=== PATIENT | male | born 1950 | race Caucasian/White ===

== ENCOUNTER 2016-10-11 07:32 | Outpatient (CLI) | payer MEDICARE, MEDICAID ==
[2016-10-11 13:11] LABS: BASOPHILS # (AUTO) 0.1 10^3/uL (0.0-0.1); BASOPHILS % (AUTO) 0.7 %; EOSINOPHILS # (AUTO) 0.2 10^3/uL (0.0-0.7); EOSINOPHILS % (AUTO) 2.7 %; HCT - HEMATOCRIT 30.5 % (42.0-52.0); HGB - HEMOGLOBIN 10.6 g/dL (14.0-18.0); IMMATURE RETIC FRACTION 0.54; LYMPHOCYTES # (AUTO) 1.4 10^3/uL (1.5-3.5); LYMPHOCYTES % (AUTO) 20.6 %; MEAN CORPUSCULAR HEMOGLOBIN 27.3 pg (27.0-31.0); MEAN CORPUSCULAR HGB CONC 34.8 g/dL (32.0-36.0); MEAN CORPUSCULAR VOLUME 78.5 fL (80.0-94.0); MEAN PLATELET VOLUME 8.7 fL (7.4-11.4); MONOCYTES # (AUTO) 0.6 10^3/uL (0.0-1.0); MONOCYTES % (AUTO) 8.6 %; NEUTROPHILS # (AUTO) 4.6 10^3/uL (1.5-6.6); NEUTROPHILS % (AUTO) 67.4 %; NUCLEATED RED BLOOD CELLS AUTO 0.2 /100WBC; RED BLOOD COUNT 3.89 10^6/uL (4.70-6.10); RED CELL DISTRIBUTION WIDTH 16.8 % (12.0-15.0); UNCORRECTED WHITE BLOOD COUNT 6.8 x10^3/uL; WHITE BLOOD COUNT 6.8 x10^3/uL (4.8-10.8)
[2016-10-11 13:35] LABS: ALBUMIN/GLOBULIN RATIO 1.3 (1.0-2.2); BILIRUBIN,TOTAL 0.9 mg/dL (0.2-1.0); BUN - BLOOD UREA NITROGEN 13 mg/dL (6-20); CALCIUM 9.3 mg/dL (8.5-10.3); CARBON DIOXIDE - CO2 25 mmol/L (21-32); CHLORIDE 96 mmol/L (101-111); CHOL/HDL RATIO 6.1 (<5.0); CHOLESTEROL 227 mg/dL; CREATININE 0.6 mg/dL (0.6-1.2); GFR - MDRD 134 (>89); GLUCOSE 118 mg/dL (70-100); HDL CHOLESTEROL 37 mg/dL; IRON 91 ug/dL (45-182); LDL/HDL RATIO 4.3 (<3.6); POTASSIUM 3.8 mmol/L (3.5-5.0); SODIUM 131 mmol/L (135-145); TOTAL IRON BINDING CAPACITY 389 ug/dL (250-450); TOTAL PROTEIN 7.5 g/dL (6.7-8.2); TRANSFERRIN 278 mg/dL (180-329); TRIGLYCERIDES 153 mg/dL; VLDL CHOLESTEROL 31 mg/dL
[2016-10-11 13:44] LABS: THYROID STIMULATING HORMONE 0.71 uIU/mL (0.34-5.60)
[2016-10-11 14:49] LABS: PLATELET ESTIMATE, MANUAL NORMAL (130-450,000) (NORMAL); PLATELET MORPHOLOGY 1+ GIANT PLATELETS (NORMAL)
[2016-10-11 14:50] LABS: WBC MORPHOLOGY (MULTIPLE) NORMAL APPEARANCE (NORMAL)
[2016-10-12 14:59] LABS: HEMOGLOBIN A1C 0.45 g/dL
[2016-10-12 15:21] LABS: FOLATE 12.07 ng/mL (5.90 - >24.8)
== END 2016-10-11 07:33 | disposition home or self-care (01) ==
LOC: LAB.N 07:32
PROVIDERS: ATTEND Physician Assistant
DX: D51.9 Vitamin B12 deficiency anemia, unspecified (principal)
CPT/HCPCS: 36415; 80053; 80061; 82607; 82728; 82746; 83036; 83540; 84443; 84466; 85025; 85044

== ENCOUNTER 2016-11-23 12:04 | Outpatient (CLI) | payer MEDICARE, MEDICAID ==
--- NOTE | 2016-11-23 16:07 | XRAY Report ---
CHEST TWO VIEWS: 11/23/2016 CLINICAL HISTORY: Chronic constipation, cough, smoker. COMPARISON: None. FINDINGS: The heart size is normal. The lungs are grossly clear. There is no pleural fluid or pneumo thorax. Degenerative change in the spine. IMPRESSION: NEGATIVE FOR ACUTE OR SIGNIFICANT FINDINGS. JOB #: [id number] EXT JOB #:[id number]
== END 2016-11-23 12:05 | disposition home or self-care (01) ==
LOC: DI 12:04
PROVIDERS: ATTEND Internal Medicine Hematology & Oncology
DX: R05 Cough (principal); F17.200 Nicotine dependence, unspecified, uncomplicated
CPT/HCPCS: 71020

== ENCOUNTER 2016-11-25 14:30 | Outpatient (CLI) | payer MEDICARE, MEDICAID ==
[2016-11-25 19:21] LABS: ALBUMIN/GLOBULIN RATIO 1.2 (1.0-2.2); BILIRUBIN,TOTAL 0.5 mg/dL (0.2-1.0); CREATININE 0.6 mg/dL (0.6-1.2); POTASSIUM 3.7 mmol/L (3.5-5.0); TOTAL PROTEIN 6.6 g/dL (6.7-8.2)
== END 2016-11-25 14:31 | disposition home or self-care (01) ==
LOC: LAB.N 14:30
PROVIDERS: ATTEND Family Medicine
DX: R89.9 Unspecified abnormal finding in specimens from other organs, systems and tissues (principal); R79.89 Other specified abnormal findings of blood chemistry; R35.1 Nocturia
CPT/HCPCS: 36415; 80053; 82728; 84153

== ENCOUNTER 2016-11-25 14:55 | Outpatient (CLI) | payer MEDICARE, MEDICAID ==
--- NOTE | 2016-11-28 09:21 | XRAY Report ---
BILATERAL HIPS AND PELVIS: 11/25/2016 CLINICAL INDICATION: Pain. FINDINGS: Frontal view of the hips and pelvis and frogleg lateral views of the bilateral hips demons trate moderate bilateral hip osteoarthritis. There are fractures of the right superior and inferior pubic rami, with callus formation, likely representing subacute insufficiency fractures. No definite sacral fracture is appreciated. No radiopaque foreign body is seen in the soft tissues. IMPRESSION: MODERATE BILATERAL OSTEOARTHRITIS. LIKELY SUBACUTE INSUFFICIENCY FRACTURES OF THE RIGHT SUPERIOR AND INFERIOR PUBIC RAMI. JOB #: [id number] EXT JOB #:[id number]
[2016-11-28 16:41] LABS: PSA FREE > 160.000 ng/mL (0.16-2.81)
== END 2016-11-25 14:56 | disposition home or self-care (01) ==
LOC: DI.N 14:55
PROVIDERS: ATTEND Family Medicine
DX: M84.454A Pathological fracture, pelvis, initial encounter for fracture (principal); M16.0 Bilateral primary osteoarthritis of hip
CPT/HCPCS: 36415; 73521; 80053; 82728; 84153; 84154

== ENCOUNTER 2016-12-17 14:26 | Emergency (ER) | payer MEDICARE, MEDICAID ==
--- NOTE | 2016-12-17 15:08 | ED Physician Documentation ---
History of Present Illness - Stated complaint Stated Complaint: MEDICATION REACTION - Chief complaint Chief Complaint: General - History obtained from History obtained from: Patient, Family - History of Present Illness Timing: Last night - Additonal information Additional information: 66-year-old male with a history of prostate cancer has metastases to the bone and pain in his pelvis and hips. He has seen his primary care doctor and will see a urologist in 5 days. He has been having pain in his hips and pelvis and he has been prescribed some Tylenol with codeine for this. The patient has previously taken Vicodin and has tolerated this. He took the Tylenol with codeine last night and immediately developed a pounding in his heart. He had this for several hours last night he feels well today. He feels that this was an obvious reaction to the medication and he would like us to fill his prescription for some Vicodin instead. He does not feel that workup of this is required or necessary. Review of Systems Constitutional: denies: Fever Eyes: denies: Decreased vision Ears: denies: Ear pain Nose: denies: Congestion Throat: denies: Sore throat Cardiac: reports: Palpitations. denies: Chest pain / pressure Respiratory: reports: Cough (chronic). denies: Dyspnea GI: denies: Nausea, Vomiting : denies: Dysuria, Frequency PD PAST MEDICAL HISTORY - Past Medical History Cardiovascular: Hypertension Respiratory: Asthma, Shortness of breath Neuro: None Endocrine/Autoimmune: None GI: None : Frequency HEENT: None Psych: None Musculoskeletal: None Derm: Herpes zoster, Eczema - Past Surgical History Past Surgical History: Yes General: Other - Present Medications Home Medications: Ambulatory Orders Medication Instructions Recorded Confirmed Albuterol Sulf [Ventolin Hfa 1 - 2 puffs INH Q4HR PRN 11/21/16 12/17/16 Inhaler] Ipratropium/Albuterol [Combivent 1 puffs INH Q6H 11/21/16 12/17/16 Respimat] Metoprolol Tartrate 25 mg PO BID 11/21/16 12/17/16 Nifedipine [Nifedipine ER] 30 mg PO DAILY 11/21/16 12/17/16 HYDROcod/ACETAM 5/325 [[place] 5/325] 1 - 2 ea PO Q6H PRN #15 tablet 12/17/16 - Allergies Allergies/Adverse Reactions: Allergies Allergy/AdvReac Type Severity Reaction Status Date / Time Penicillins Allergy Unknown Unknown Verified 12/17/16 14:37 chlorehexidine Allergy Rash Uncoded 12/17/16 14:38 - Social History Does the pt smoke?: No Smoking Status: Former smoker Does the pt drink ETOH?: No Does the pt have substance abuse?: No - Immunizations Immunizations are current?: Yes - POLST Patient has POLST: No PD ED PE NORMAL - Vitals Vital signs reviewed: Yes (hypertensive ) - General General: No acute distress, Well developed/nourished - HEENT HEENT: Atraumatic, PERRL, EOMI - Neck Neck: Supple, no meningeal sign - Cardiac Cardiac: RRR, No murmur - Respiratory Respiratory: No respiratory distress, Other (diminished breath sounds bilaterally ) - Abdomen Abdomen: Soft - Back Back: No CVA TTP, No spinal TTP - Derm Derm: Normal color, Warm and dry, No rash - Extremities Extremities: No deformity, No edema - Neuro Neuro: Alert and oriented X 3, breaker unit assembler 2-12 intact, No motor deficit, No sensory deficit, Normal speech - Psych Psych: Normal mood, Normal affect Results - Vitals Vitals: Vital Signs - 24 hr 12/17/16 12/17/16 14:30 16:12 Temperature 36.6 C Heart Rate 82 82 Respiratory 16 21 Rate Blood Pressure 150/68 H 128/63 O2 Saturation 100 98 Oxygen O2 Source Room air - EKG (time done) 1452 Rate: Rate (enter#) (80) Rhythm: NSR Compare to prior EKG: Changed from prior EKG (rate has decreased) Computer interpretation: Agree with computer PD MEDICAL DECISION MAKING - ED course Complexity details: reviewed old records, reviewed results, re-evaluated patient , considered differential, d/w patient, d/w family ED course: 66-year-old male with a history of prostate cancer with bone metastases has developed some tachycardia last night or feeling of rapid heart rate after taking Tylenol with codeine. He is refusing workup today and he has a normal- appearing resting electrocardiogram and no symptoms related to his heart. He denies any chest pain. Denies any shortness of breath. I have shared with patient my concerns of alternative diagnoses being uncovered by workup and he does not think this is necessary. I do not have any specific finding on physical examination for monitoring here today to be able to argue with the patient about the need to do these specific test. I am concerned that if I did do these tests I would be doing them unnecessarily and I discussed this with the patient and I will provide him with a prescription for the pain medication as requested and he will follow-up with his urologist as planned. Departure - Departure Disposition: Home, Self Care Clinical Impression: Medication side effect Qualifiers: Encounter type: initial encounter Qualified Code(s): T88.7XXA - Unspecified adverse effect of drug or medicament, initial encounter Condition: Stable Instructions: ED Drug React Adverse Other Follow-Up: Yahir Adhikari MD [Primary Care Provider] - Prescriptions: HYDROcod/ACETAM 5/325 [[place]me[place] 5/325] 1 - 2 ea PO Q6H PRN #15 tablet PRN Reason: Pain
[2016-12-17 16:12] VITALS: BP 128/63
== END 2016-12-17 16:30 | disposition home or self-care (01) ==
LOC: ED 14:26
DX: R00.0 Tachycardia, unspecified (principal); T40.2X5A Adverse effect of other opioids, initial encounter; C79.51 Secondary malignant neoplasm of bone; Z85.46 Personal history of malignant neoplasm of prostate; I10 Essential (primary) hypertension; J45.909 Unspecified asthma, uncomplicated; Z87.891 Personal history of nicotine dependence
CPT/HCPCS: 93005; 99283; 99284

== ENCOUNTER 2016-12-24 11:43 | Outpatient (CLI) | payer MEDICARE, MEDICAID ==
[2016-12-24] MEDS ORDERED: IOPAMIDOL-300 100 ML VIAL ONE (11:58)
[2016-12-24] MEDS ORDERED: IOPAMIDOL-300 50 ML VIAL ONE (11:58)
[2016-12-24] MEDS ORDERED: IOPAMIDOL-300 50 ML VIAL PO ONE (13:58)
[2016-12-24] MEDS ORDERED: IOPAMIDOL-300 100 ML VIAL IVP ONE (13:58)
--- NOTE | 2016-12-25 08:16 | CT Report ---
EXAM: CT CHEST, ABDOMEN AND PELVIS EXAM DATE: 12/24/2016 02:49 PM. CLINICAL HISTORY: Prostate cancer. COMPARISONS: None. TECHNIQUE: Routine helical CT imaging was performed through the chest, abdomen, and pelvis. IV contra st: 100 cc Isovue-300. Enteric contrast: Yes. Reconstructions: Coronal and sagittal. In accordance with CT protocol optimization, one or more of the following dose reduction techniques w ere utilized for this exam: automated exposure control, adjustment of mA and/or KV based on patient s ize, or use of iterative reconstructive technique. FINDINGS: Lungs/Pleura: No consolidation. Mild diffuse bilateral ill-defined groundglass opacities likely refle ct a low-grade inflammatory process. Trace bilateral pleural effusions with associated atelectasis. S lightly suboptimal evaluation of the lung bases secondary to motion artifact. No suspicious pulmonary nodule demonstrated. The airways are within normal limits for age. No pneumothorax. Mediastinum: The heart size is normal. Trace pericardial effusion. Coronary artery disease. No adenop athy or mass. Minimal thoracic aortic atherosclerosis without aneurysm. Somewhat suboptimal evaluatio n secondary to poor contrast opacification. Liver: Normal. Gallbladder/Bile Ducts: Cholelithiasis. No CT evidence of cholecystitis. Spleen: Normal. Pancreas: Normal. Adrenal Glands: Normal. Kidneys: Well-circumscribed hypodense foci are too small to characterize but likely represent simple cysts. No perinephric stranding or hydronephrosis. Peritoneal Cavity/Bowel: No bowel obstruction. Moderate stool in the proximal colon. Normal appendix. No ascites or pneumoperitoneum. No lymphadenopathy. Pelvic Organs: The prostate gland is enlarged and contains coarse central calcifications. The urinary bladder is within normal limits. Vasculature: Moderate atherosclerosis without aneurysm or other significant abnormality. Bones: Extensive, heterogeneous sclerotic lesions throughout spine, ribs, sternum, scapulae, clavicle s, pelvis, and imaged proximal femurs and proximal humeri. No acute fracture. Other: [id number] left inguinal hernia without evidence of incarceration or strangulation . IMPRESSION: 1. Extensive osseous metastases involving the entirety of the axial and imaged appendicular skeleton. No evidence of soft tissue metastases in the chest, abdomen, or pelvis. 2. Bowel-containing left inguinal hernia without evidence of obstruction. 3. Cholelithiasis without cholecystitis. 4. Chronic and incidental findings as above. [facility] Referring Provider Line: [phone] SITE ID: [id number]
== END 2016-12-24 11:44 | disposition home or self-care (01) ==
LOC: DI 11:43
PROVIDERS: ATTEND Urology
DX: C61 Malignant neoplasm of prostate (principal); C79.51 Secondary malignant neoplasm of bone; K40.90 Unilateral inguinal hernia, without obstruction or gangrene, not specified as recurrent; K80.20 Calculus of gallbladder without cholecystitis without obstruction
CPT/HCPCS: 71260; 74177; Q9967

== ENCOUNTER 2016-12-27 10:48 | Outpatient (CLI) | payer MEDICARE, MEDICAID ==
--- NOTE | 2016-12-27 16:56 | Nuclear Medicine Report ---
EXAM: BONE SCAN EXAM DATE: 12/27/2016 01:37 PM. CLINICAL HISTORY: PROSTATE CANCER. COMPARISON: CT 12/24/2016. TECHNIQUE: Following the intravenous administration of 32.6 mCi of technetium 99m MDP and an appropri ate delay, a whole-body scan was performed in anterior and posterior projections. FINDINGS: Exam Quality: Normal overall osseous radiotracer uptake. No renal activity identified. Skull: A few small foci of increased uptake are noted in skull. Thorax: Diffuse increased uptake in the ribs and sternum. Pelvis: Diffuse increased uptake in the pelvic bones. Spine: Diffuse increased uptake in the spine. Extremities: Several focal areas of increased uptake in the femurs and humeri. IMPRESSION: Diffuse skeletal metastatic disease in the axial and proximal appendicular skeleton. [facility] Referring Provider Line: [phone] SITE ID: [id number]
== END 2016-12-27 10:49 | disposition home or self-care (01) ==
LOC: DI 10:48
PROVIDERS: ATTEND Urology
DX: C79.51 Secondary malignant neoplasm of bone (principal)
CPT/HCPCS: 78306; A9503

== ENCOUNTER 2017-09-14 09:56 | Emergency (ER) | payer MEDICARE, MEDICAID ==
--- NOTE | 2017-09-14 10:32 | ED Physician Documentation ---
PD HPI UPPER EXT INJURY - Stated complaint Stated Complaint: GLF - Chief complaint Chief Complaint: Ext Problem - History obtained from History obtained from: Patient, Family - History of Present Illness Location: Right, Wrist Type of injury: Fall Where injury occurred: Home Timing - onset: Last night Timing - duration: Hours Timing - details: Abrupt onset, Still present Improved by: Rest, Ice, Immobilization Worsened by: Moving, Palpating Associated symptoms: Swelling. No: Weakness, Numbness, Tingling Contributing factors: No: Anticoagulated Similar symptoms before: Has not had sx before Recently seen: Clinic - Additonal information Additional information: 67-year-old male with advanced prostate cancer was outside feeding the [facility] last night when he fell backwards and as he fell he put his hand out behind him and landed on his right hand. He has pain in his right wrist and some swelling associated with that. He was able to be comfortable enough to sleep last night. He is been recently into see his oncologist and he is on dexamethasone daily and feels for the most part well. He is not having any other specific bone pain now. Review of Systems Constitutional: denies: Fever Eyes: denies: Decreased vision Ears: denies: Ear pain Nose: denies: Congestion Throat: denies: Sore throat Cardiac: denies: Chest pain / pressure, Palpitations Respiratory: denies: Dyspnea, Cough GI: denies: Abdominal Pain, Nausea, Vomiting : denies: Dysuria, Frequency Musculoskeletal: reports: Extremity pain, Joint pain, Joint swelling Neurologic: denies: Generalized weakness, Focal weakness, Numbness PD PAST MEDICAL HISTORY - Past Medical History Cardiovascular: Hypertension Respiratory: Asthma, Shortness of breath Endocrine/Autoimmune: None GI: None : Frequency HEENT: None Psych: None Musculoskeletal: None Derm: Herpes zoster, Eczema - Past Surgical History Past Surgical History: Yes General: Other - Present Medications Home Medications: Ambulatory Orders Medication Instructions Recorded Confirmed Albuterol Sulf [Ventolin Hfa 1 - 2 puffs INH Q4HR PRN 11/21/16 12/17/16 Inhaler] Ipratropium/Albuterol [Combivent 1 puffs INH Q6H 11/21/16 12/17/16 Respimat] Metoprolol Tartrate 25 mg PO BID 11/21/16 12/17/16 HYDROcod/ACETAM 5/325 [[place] 5/325] 1 - 2 ea PO Q6H PRN #15 tablet 12/17/16 Bicalutamide 50 mg PO 09/14/17 Dexamethasone 4 mg PO 09/14/17 Fexofenadine HCl 180 mg PO 09/14/17 - Allergies Allergies/Adverse Reactions: Allergies Allergy/AdvReac Type Severity Reaction Status Date / Time Penicillins Allergy Unknown Unknown Verified 09/14/17 10:12 codeine Allergy Unknown Verified 09/14/17 10:13 chlorehexidine Allergy Rash Uncoded 09/14/17 10:12 - Social History Does the pt smoke?: No Smoking Status: Former smoker Does the pt drink ETOH?: No Does the pt have substance abuse?: No - Immunizations Immunizations are current?: Yes - POLST Patient has POLST: No PD ED PE NORMAL - Vitals Vital signs reviewed: Yes (normal) - General General: Alert and oriented X 3, No acute distress, Well developed/nourished - HEENT HEENT: Atraumatic, PERRL, EOMI - Neck Neck: Supple, no meningeal sign, No bony TTP - Respiratory Respiratory: No respiratory distress, Other (no chest wall tenderness) - Derm Derm: Normal color, Warm and dry, No rash - Extremities Extremities: Other (There is swelling and point tenderness to the distal radius on the right side. There is preserved ROM of the joint without much pain and the distal n/v is intact. ) - Neuro Neuro: Alert and oriented X 3, ash kier boiler 2-12 intact, No motor deficit, No sensory deficit, Normal speech Eye Opening: Spontaneous Motor: Obeys Commands Verbal: Oriented GCS Score: 15 - Psych Psych: Normal mood, Normal affect Results - Vitals Vitals: Vital Signs - 24 hr 09/14/17 09/14/17 10:11 11:42 Temperature 36.8 C 36.7 C Heart Rate 98 88 Respiratory 16 18 Rate Blood Pressure 132/61 H 128/60 O2 Saturation 94 95 Oxygen O2 Source Room air - Rads (name of study) right wrist Radiology: Prelim report reviewed (Impression: Comminuted distal radial intra- articular fracture with angulation.), EMP read indepedently, See rad report Procedures - Splint (location) right wrist Splint applied by: Tech Type of splint: Fiberglass, Volar cock up Other: Patient tolerated well, No complications, Neurovascular intact, Good alignment PD MEDICAL DECISION MAKING - ED course Complexity details: reviewed results, re-evaluated patient, considered differential, d/w patient, d/w family ED course: 67-year-old male with history of advanced prostate cancer presents with a FOOSH and comminuted fracture of the distal radius. He is placed into a volar splint and will follow-up with orthopedics for casting. - Sepsis Event Vital Signs: Vital Signs - 24 hr 09/14/17 09/14/17 10:11 11:42 Temperature 36.8 C 36.7 C Heart Rate 98 88 Respiratory 16 18 Rate Blood Pressure 132/61 H 128/60 O2 Saturation 94 95 Oxygen O2 Source Room air Departure - Departure Disposition: 01 Home, Self Care Clinical Impression: Distal radius fracture, right Qualifiers: Encounter type: initial encounter Fracture type: closed Fracture morphology: Colles' Qualified Code(s): S52.531A - Colles' fracture of right radius, initial encounter for closed fracture Condition: Stable Instructions: ED Fx Forearm Radius Ulna No Redu Requ Follow-Up: [facility] [Provider Group] Discharge Date/Time: 09/14/17 11:42
[2017-09-14 11:43] VITALS: BP 128/60
--- NOTE | 2017-09-14 13:04 | XRAY Report ---
Procedure Date: 09/14/2017 Accession Number: [id number] / [id number] Procedure: XR - Wrist 3 View RT CPT Code: FULL RESULT: EXAM: RIGHT WRIST RADIOGRAPHY EXAM DATE: 09/14/2017 10:34 AM. CLINICAL HISTORY: FOOSH INJURY. Fracture COMPARISON: None. TECHNIQUE: 3 views. FINDINGS: Bones: Comminuted distal radial intra-articular fracture with angulation apex ventral. Joints: Normal. No subluxations. Soft Tissues: soft tissue swelling. IMPRESSION: Comminuted distal radial intra-articular fracture with angulation [facility]
== END 2017-09-14 11:42 | disposition home or self-care (01) ==
LOC: ED 09:56
DX: S52.531A Colles' fracture of right radius, initial encounter for closed fracture (principal); I10 Essential (primary) hypertension; Z87.891 Personal history of nicotine dependence; W18.30XA Fall on same level, unspecified, initial encounter; Y93.89 Activity, other specified; Y92.007 Garden or yard of unspecified non-institutional (private) residence as the place of occurrence of the external cause
CPT/HCPCS: 29125; 99283

== ENCOUNTER 2017-09-22 07:02 | Outpatient (CLI) | payer MEDICARE, MEDICAID ==
[2017-09-22] MEDS ORDERED: IOPAMIDOL-300 100 ML VIAL ONE (07:19)
[2017-09-22] MEDS ORDERED: IOPAMIDOL-300 50 ML VIAL ONE (07:19)
[2017-09-22] MEDS: IOPAMIDOL-300 100 ML VIAL IVP ONE (09:25)
[2017-09-22] MEDS: IOPAMIDOL-300 50 ML VIAL PO ONE (09:25)
--- NOTE | 2017-09-22 10:05 | CT Report ---
Procedure Date: 09/22/2017 Accession Number: [id number] / [id number] Procedure: CT - Abdomen/Pelvis W/ CPT Code: FULL RESULT: EXAM: Chest W/, Abdomen/Pelvis W/ DATE: 09/22/2017 9:22 AM CLINICAL HISTORY: PROSTATE CANCER COMPARISON: None. TECHNIQUE: Routine helical CT imaging was performed through the chest, abdomen and pelvis. IV contrast: 100 mL Isovue 300 Reconstructions: Coronal and sagittal. In accordance with CT protocol optimization, one or more of the following dose reduction techniques were utilized for this exam: automated exposure control, adjustment of mA and/or KV based on patient size, or use of iterative reconstructive technique. FINDINGS: Lungs/Pleura: There are no lung nodules, masses there is no focal consolidation. Redemonstration of mild diffuse bilateral ill-defined groundglass opacities. The tracheobronchial tree is unremarkable. There is no pleural effusion. Mediastinum: Normal. No adenopathy or masses. The heart and great vessels are normal. Bones: Similar appearance of diffuse appendicular and axial skeleton sclerotic metastatic disease. ABDOMEN/PELVIS: The liver, gallbladder, spleen, adrenal glands, right and left kidney, pancreas are unremarkable with the exception of cholelithiasis, a right renal scar, 2 left renal cysts measuring up to 1.3 cm which are incompletely characterized but not enlarged compared to 2017 and bilateral renal hypodensities which are too small to characterize. There is no extraintestinal gas, free fluid in the pelvis or abdomen and there is no abdominal pelvic or retroperitoneal lymphadenopathy. Redemonstration of a left bowel containing inguinal hernia and prostatic radiation seeds. IMPRESSION: Diffuse skeletal metastases. No evidence of visceral/soft tissue metastatic disease. Two left renal cysts up to 1.3 cm which are not enlarged compared to 2017 remain incompletely characterized. [facility]
--- NOTE | 2017-09-22 15:37 | Nuclear Medicine Report ---
Procedure Date: 09/22/2017 Accession Number: [id number] / [id number] Procedure: NM - Bone Whole Body CPT Code: FULL RESULT: EXAM: BONE SCAN EXAM DATE: 09/22/2017 01:25 PM. CLINICAL HISTORY: PROSTATE CANCER. COMPARISON: Chest abdomen and pelvis CT, same day. Bone scan 12/27/2016. TECHNIQUE: Following the intravenous administration of 32.3 mCi of technetium 99m MDP and an appropriate delay, a whole-body scan was performed in anterior and posterior projections. FINDINGS: Exam Quality: There is little if any renal activity identified. Skull: Mild heterogeneous uptake. Thorax: Heterogeneous, diffusely increased uptake in bilateral ribs and sternum. Pelvis: There is heterogeneous diffuse increased uptake in the pelvic bones. Spine: There is heterogeneous diffuse increased uptake in the spine. Extremities: There are persistent foci of abnormal increased uptake in the bilateral femurs and humeri. IMPRESSION: Diffuse skeletal metastatic disease, similar to the prior bone scan. [facility]
== END 2017-09-22 07:03 | disposition home or self-care (01) ==
LOC: DI 07:02
PROVIDERS: ATTEND Internal Medicine Hematology & Oncology
DX: C61 Malignant neoplasm of prostate (principal); C79.51 Secondary malignant neoplasm of bone; Q61.02 Congenital multiple renal cysts
CPT/HCPCS: 71260; 74177; 78306; Q9967

== ENCOUNTER 2017-09-23 09:40 | Emergency (ER) | payer MEDICARE, MEDICAID ==
[2017-09-23] MEDS ORDERED: IPRATROPIUM/ALBUTEROL 3 ML NEB INH STA (10:00)
[2017-09-23] MEDS ORDERED: predniSONE 20 MG TABLET PO STA (10:08)
--- NOTE | 2017-09-23 10:15 | ED Physician Documentation ---
PD HPI DYSPNEA - Stated complaint Stated Complaint: SOA - Chief complaint Chief Complaint: Resp - History obtained from History obtained from: Patient, Family - History of Present Illness Timing - onset: Last night Timing - onset during: Rest Timing - duration: Days (1) Timing - details: Gradual onset Pain level max: 0 Pain level now: 0 Improved by: Inhaler/neb, Rest Associated symptoms: Wheezing, Anxiety. No: Fever, Cough, Hemoptysis, Chest pain / discomfort, Palpitations, Diaphoresis, Bilateral edema, Unilateral edema Similar symptoms before: Diagnosis (asthma) Recently seen: Other (bone scan and CT scan yesterday for metastatic prostate cancer.) - Additional information Additional information: 67 year old male with metastatic prostate cancer and asthma, dyspnea since last night. no relief with inhalers. Review of Systems Ten Systems: 10 systems reviewed and negative Constitutional: denies: Fever, Chills Ears: denies: Ear pain Nose: denies: Rhinorrhea / runny nose, Congestion Throat: denies: Sore throat Cardiac: denies: Palpitations Respiratory: reports: Dyspnea, Wheezing GI: denies: Abdominal Pain, Nausea, Vomiting, Constipation, Diarrhea : denies: Dysuria Skin: denies: Rash Musculoskeletal: denies: Neck pain, Back pain Neurologic: denies: Focal weakness, Numbness, Headache PD PAST MEDICAL HISTORY - Past Medical History Cardiovascular: Hypertension Respiratory: Asthma, Shortness of breath Endocrine/Autoimmune: None GI: None : Frequency HEENT: None Psych: None Musculoskeletal: None Derm: Herpes zoster, Eczema - Past Surgical History Past Surgical History: Yes General: Other - Present Medications Home Medications: Ambulatory Orders Medication Instructions Recorded Confirmed Albuterol Sulf [Ventolin Hfa 1 - 2 puffs INH Q4HR PRN 11/21/16 12/17/16 Inhaler] Ipratropium/Albuterol [Combivent 1 puffs INH Q6H 11/21/16 12/17/16 Respimat] Metoprolol Tartrate 25 mg PO BID 11/21/16 12/17/16 HYDROcod/ACETAM 5/325 [[place] 5/325] 1 - 2 ea PO Q6H PRN #15 tablet 12/17/16 Bicalutamide 50 mg PO 09/14/17 Dexamethasone 4 mg PO 09/14/17 Fexofenadine HCl 180 mg PO 09/14/17 Albuterol Sulf [Ventolin Hfa 1 - 2 puffs INH Q4HR PRN #1 inhaler 09/23/17 Inhaler] - Allergies Allergies/Adverse Reactions: Allergies Allergy/AdvReac Type Severity Reaction Status Date / Time Penicillins Allergy Unknown Unknown Verified 09/23/17 09:51 codeine Allergy Unknown Verified 09/23/17 09:51 chlorehexidine Allergy Rash Uncoded 09/23/17 09:51 - Social History Does the pt smoke?: No Smoking Status: Former smoker Does the pt drink ETOH?: No Does the pt have substance abuse?: No - Immunizations Immunizations are current?: Yes - POLST Patient has POLST: No PD ED PE NORMAL - Vitals Vital signs reviewed: Yes - General General: Alert and oriented X 3 - HEENT HEENT: Moist mucous membranes - Neck Neck: Supple, no meningeal sign - Cardiac Cardiac: RRR, Strong equal pulses - Respiratory Respiratory: Other (mild resp distress, very diminished BS bilaterally. ) - Abdomen Abdomen: Soft, Non tender, Non distended - Derm Derm: Warm and dry, No rash - Neuro Neuro: Alert and oriented X 3 - Psych Psych: Normal mood, Normal affect Results - Vitals Vitals: Vital Signs - 24 hr 09/23/17 09/23/17 09:47 10:39 Temperature 37.5 C Heart Rate 77 67 Respiratory 18 22 Rate Blood Pressure 174/77 H O2 Saturation 99 Oxygen O2 Source Room air - Rads (name of study) cxr Radiology: Prelim report reviewed, EMP read contemporaneously, See rad report ( no acute disease) PD MEDICAL DECISION MAKING - ED course Complexity details: reviewed results, re-evaluated patient, considered differential, d/w patient, d/w family ED course: Patient is a 59-year-old male with metastatic prostate cancer who presents with what appears to be an asthma exacerbation. He took 8 mg of dexamethasone this morning and was given nebulizer treatments here. Breathing is much improved. Upon further history he is out of his inhalers but is continued to use them despite the counter reading 0. Therefore we will refill his inhaler and have him follow-up closely with his doctor. Patient is well-appearing, nontoxic. Afebrile. Patient and family counseled regarding signs and symptoms for which I believe and urgent re-evaluation would be necessary. Patient with good understanding of and agreement to plan and is comfortable going home at this time This document was made in part using voice recognition software. While efforts are made to proofread this document, sound alike and grammatical errors may occur. - Sepsis Event Vital Signs: Vital Signs - 24 hr 09/23/17 09/23/17 09:47 10:39 Temperature 37.5 C Heart Rate 77 67 Respiratory 18 22 Rate Blood Pressure 174/77 H O2 Saturation 99 Oxygen O2 Source Room air Departure - Departure Disposition: 01 Home, Self Care Clinical Impression: Asthma exacerbation Qualifiers: Asthma severity: moderate Asthma persistence: unspecified Qualified Code(s): J45.901 - Unspecified asthma with (acute) exacerbation Condition: Good Instructions: ED Reactive Airway Disease Follow-Up: Mamadou Roca MD [Primary Care Provider] - Within 1 week Prescriptions: Albuterol Sulf [Ventolin Hfa Inhaler] 1 - 2 puffs INH Q4HR PRN #1 inhaler PRN Reason: Shortness Of Air/Wheezing Comments: Return if you worsen. Use the inhaler as needed to help you breathe. Continue your dexamethasone as prescribed at home.
[2017-09-23] MEDS ORDERED: ALBUTEROL NEB 2.5 MG/3 ML INH STA (11:00)
[2017-09-23] MEDS ORDERED: ALBUTEROL NEB 2.5 MG/3 ML INH ONE (11:22)
--- NOTE | 2017-09-23 11:34 | XRAY Report ---
Procedure Date: 09/23/2017 Accession Number: [id number] / [id number] Procedure: XR - Chest 1 View X-Ray CPT Code: 45409 FULL RESULT: EXAM: CHEST RADIOGRAPHY EXAM DATE: 09/23/2017 10:19 AM. CLINICAL HISTORY: Dyspnea. Difficulty breathing. Prostate cancer COMPARISON: 11/23/2016 chest x-ray, chest CT 09/22/2017. TECHNIQUE: 1 view. FINDINGS: Lungs/Pleura: No focal opacities evident. No pleural effusion. No pneumothorax. Mediastinum: The heart size is normal. Arterial calcifications indicate atherosclerosis. Other: Diffuse sclerotic metastases are seen throughout the visualized skeleton. IMPRESSION: Diffuse sclerotic metastases. RADIA
[2017-09-23 12:16] VITALS: BP 134/76
== END 2017-09-23 11:50 | disposition home or self-care (01) ==
LOC: ED 09:40
DX: J45.901 Unspecified asthma with (acute) exacerbation (principal); I10 Essential (primary) hypertension; Z87.891 Personal history of nicotine dependence; C61 Malignant neoplasm of prostate; C79.51 Secondary malignant neoplasm of bone
CPT/HCPCS: 71045; 94640; 94664; 99283; 99284; J7512

== ENCOUNTER 2017-10-02 05:38 | Outpatient (CLI) | payer MEDICARE, MEDICAID | END 2017-10-02 05:39 | disposition critical access hospital (66) | LOC: EMS 05:38 | PROVIDERS: ATTEND Surgery | DX: R53.1 Weakness (principal); R41.82 Altered mental status, unspecified | CPT/HCPCS: A0425; A0427 ==

== ENCOUNTER 2017-10-02 05:51 | Inpatient (IN) | payer MEDICARE, MEDICAID ==
[2017-10-02] MEDS ORDERED: SODIUM CHLORIDE 0.9% 1,000 ML IV ONE (06:15)
[2017-10-02] MEDS ORDERED: ACETAMINOPHEN 325 MG TABLET PO STA (06:16)
[2017-10-02 06:19] LABS: BILIRUBIN,URINE NEGATIVE (NEGATIVE); GLUCOSE, URINE (UA) NEGATIVE (NEGATIVE); KETONES,URINE (UA) NEGATIVE (NEGATIVE); LEUKOCYTE ESTERASE, URINE NEGATIVE (NEGATIVE); NITRITE,URINE NEGATIVE (NEGATIVE); OCCULT BLOOD,URINE NEGATIVE (NEGATIVE); PROTEIN,URINE 30 mg/dL (NEGATIVE); UROBILINOGEN,URINE 0.2 (NORMAL) E.U./dL (NORMAL)
--- NOTE | 2017-10-02 06:27 | ED Physician Documentation ---
History of Present Illness - Stated complaint Stated Complaint: WEAKNESS - Chief complaint Chief Complaint: Fever - History obtained from History obtained from: Patient, Family (Significant Other), EMS - History of Present Illness Timing: Last night - Additonal information Additional information: The patient is a 67-year-old male with history of prostate cancer with bony metastases, 4 days status post chemotherapy, who presents via ambulance because of progressive weakness. He was generally weak last night prior to bed, but this morning was much worse, unable to stand due to weakness. He normally ambulates without assistance. He has been lightheaded, and reports chills. He denies chest pain, shortness of breath, abdominal pain, nausea, vomiting, or dysuria. He denies history of similar symptoms in the past. His prostate cancer was diagnosed about 1 year ago. He was seen here 3 weeks ago with right wrist fracture after falling. He was seen here 9 days ago for an asthma exacerbation. Review of Systems Constitutional: reports: Fever, Chills, Fatigue, Other (Lightheaded.) Eyes: denies: Decreased vision Ears: denies: Tinnitus/ringing Nose: denies: Congestion Throat: denies: Sore throat Cardiac: denies: Chest pain / pressure Respiratory: denies: Dyspnea, Cough GI: denies: Abdominal Pain, Nausea, Vomiting, Diarrhea : denies: Dysuria Skin: denies: Rash Musculoskeletal: reports: Extremity pain (Bilateral knee pain.) Neurologic: reports: Generalized weakness. denies: Focal weakness, Numbness, Headache PD PAST MEDICAL HISTORY - Past Medical History Past Medical History: Yes Cardiovascular: Hypertension Respiratory: Asthma, Shortness of breath Endocrine/Autoimmune: None GI: None : Frequency HEENT: None Psych: None Musculoskeletal: None Derm: Herpes zoster, Eczema Other Past Medical History: Prostate cancer - stage 4 to bones - Past Surgical History Past Surgical History: Yes General: Other - Present Medications Home Medications: Ambulatory Orders Medication Instructions Recorded Confirmed Ipratropium/Albuterol [Combivent 1 puffs INH Q6H 11/21/16 12/17/16 Respimat] Metoprolol Tartrate 25 mg PO BID 11/21/16 12/17/16 HYDROcod/ACETAM 5/325 [[place] 5/325] 1 - 2 ea PO Q6H PRN #15 tablet 12/17/16 Bicalutamide 50 mg PO 09/14/17 Dexamethasone 4 mg PO 09/14/17 Fexofenadine HCl 180 mg PO 09/14/17 Albuterol Sulf [Ventolin Hfa 1 - 2 puffs INH Q4HR PRN #1 inhaler 09/23/17 Inhaler] Docusate Sodium 100 mg PO PRN 10/02/17 LORazepam [Ativan] 0.5 mg PO Q6H 10/02/17 Ondansetron Odt [Zofran] 4 mg TL Q6H PRN 10/02/17 Prochlorperazine [Compazine] 5 mg PO Q6H PRN 10/02/17 - Allergies Allergies/Adverse Reactions: Allergies Allergy/AdvReac Type Severity Reaction Status Date / Time Penicillins Allergy Unknown Unknown Verified 10/02/17 06:05 codeine Allergy Unknown Verified 10/02/17 06:05 chlorehexidine Allergy Rash Uncoded 10/02/17 06:05 - Living Situation Living Situation: reports: With spouse/s.o. - Social History Does the pt smoke?: No Smoking Status: Never smoker Does the pt drink ETOH?: No Does the pt have substance abuse?: No - Immunizations Immunizations are current?: Yes - POLST Patient has POLST: No PD ED PE NORMAL - Vitals Vital signs reviewed: Yes (Febrile and tachycardic.) - General General: Alert and oriented X 3, Other (Appears fatigued.) - HEENT HEENT: Atraumatic, EOMI, Pharynx benign - Neck Neck: Supple, no meningeal sign, No adenopathy, No JVD - Cardiac Cardiac: Other (Rapid rate, regular rhythm.) - Respiratory Respiratory: Clear bilaterally - Abdomen Abdomen: Soft, Non tender - Back Back: No CVA TTP - Derm Derm: No rash - Extremities Extremities: No calf tenderness / cord, Other (1+ pedal edema bilaterally.) - Neuro Neuro: Alert and oriented X 3, Normal speech, Other (No focal motor deficit.) Results - Vitals Vitals: Vital Signs - 24 hr 10/02/17 10/02/17 10/02/17 06:02 06:18 06:30 Temperature 38.3 C H Heart Rate 132 H 127 H 130 H Respiratory 28 H 27 H 26 H Rate Blood Pressure 124/56 L 109/57 L 108/70 O2 Saturation 89 L 95 95 10/02/17 10/02/17 07:11 07:37 Temperature Heart Rate 118 H 111 H Respiratory 28 H 26 H Rate Blood Pressure 118/51 L 109/46 L O2 Saturation 95 95 Oxygen O2 Source Nasal cannula Oxygen Flow Rate 2 - EKG (time done) 06:02 Rate: Rate (enter#) (127) Rhythm: Sinus tachycardia [place]: Normal Ischemia: Non specific changes Compare to prior EKG: Changed from prior EKG (When compared to previous EKG, sinus tachycardia is now present.) - Labs Labs: Laboratory Tests 10/02/17 10/02/17 10/02/17 05:55 06:11 06:11 WBC 6.1 RBC 3.41 L Hgb 10.2 L Hct 30.2 L MCV 88.4 MCH 29.8 MCHC 33.8 RDW 22.4 H Plt Count 113 L MPV 7.7 Neut # (Auto) Not Reportable Lymph # (Auto) Not Reportable [place] # (Auto) Not Reportable Eos # (Auto) Not Reportable Baso # (Auto) Not Reportable Absolute Nucleated RBC Not Reportable Total Counted 100 Band Neuts % (Manual) 24 H Reactive Lymphs % (Man) 3 Abnorm Lymph % (Manual) 0 Metamyelocytes % 2 H Nucleated RBC % Not Reportable Neutrophils # (Manual) 5.4 Lymphocytes # (Manual) 0.5 L Monocytes # (Manual) 0.1 Eosinophils # (Manual) 0.0 Basophils # (Manual) 0.0 Nucleated RBCs 1 Differential Comment MANUAL DIFFERENTIAL Platelet Estimate DECREASED (<130,000) Platelet Morphology NORMAL APPEARANCE RBC Morph Micro Appear 1+ ANISOCYTOSIS PT 13.8 H INR 1.2 APTT 28.3 Sodium Potassium Chloride Carbon Dioxide Anion Gap BUN Creatinine Estimated GFR (MDRD) Glucose Lactic Acid Calcium Total Bilirubin AST ALT Alkaline Phosphatase Total Protein Albumin Globulin Albumin/Globulin Ratio Lipase Urine Color YELLOW Urine Clarity CLEAR Urine pH 6.0 Ur Specific [place] >=1.030 H Urine Protein 30 H Urine Glucose (UA) NEGATIVE Urine Ketones NEGATIVE Urine Occult Blood NEGATIVE Urine Nitrite NEGATIVE Urine Bilirubin NEGATIVE Urine Urobilinogen 0.2 (NORMAL) Ur Leukocyte Esterase NEGATIVE Urine RBC 0-5 Urine WBC 0-3 Ur Squamous Epith Cells RARE Squamous Urine Bacteria None Seen Urine Casts 0-2 Hyaline Casts Urine Mucus Few Strands Ur Microscopic Review INDICATED Urine Culture Comments NOT INDICATED 10/02/17 10/02/17 06:11 06:11 WBC RBC Hgb Hct MCV MCH MCHC RDW Plt Count MPV Neut # (Auto) Lymph # (Auto) [place] # (Auto) Eos # (Auto) Baso # (Auto) Absolute Nucleated RBC Total Counted Band Neuts % (Manual) Reactive Lymphs % (Man) Abnorm Lymph % (Manual) Metamyelocytes % Nucleated RBC % Neutrophils # (Manual) Lymphocytes # (Manual) Monocytes # (Manual) Eosinophils # (Manual) Basophils # (Manual) Nucleated RBCs Differential Comment Platelet Estimate Platelet Morphology RBC Morph Micro Appear PT INR APTT Sodium 129 L Potassium 3.6 Chloride 97 L Carbon Dioxide 23 Anion Gap 9.0 BUN 20 Creatinine 0.7 Estimated GFR (MDRD) 112 Glucose 135 H Lactic Acid 2.0 Calcium 7.7 L Total Bilirubin 1.3 H AST 44 H ALT 67 H Alkaline Phosphatase 146 H Total Protein 5.6 L Albumin 2.6 L Globulin 3.0 Albumin/Globulin Ratio 0.9 L Lipase 22 Urine Color Urine Clarity Urine pH Ur Specific [place] Urine Protein Urine Glucose (UA) Urine Ketones Urine Occult Blood Urine Nitrite Urine Bilirubin Urine Urobilinogen Ur Leukocyte Esterase Urine RBC Urine WBC Ur Squamous Epith Cells Urine Bacteria Urine Casts Urine Mucus Ur Microscopic Review Urine Culture Comments - Rads (name of study) 1-view CXR Radiology: Prelim report reviewed, EMP read contemporaneously, See rad report (1 ) Pulmonary vascular congestion. 2) left basilar atelectasis or infiltrate and small left pleural effusion. 3) otherwise similar compared with the prior exam.) PD MEDICAL DECISION MAKING - ED course Complexity details: reviewed old records, reviewed results, re-evaluated patient , considered differential, d/w patient, d/w family, d/w systems development consultant ED course: The patient's presentation is most consistent with pneumonia with left lower lobe infiltrate and small pleural effusion. He presents with fever, tachycardia , and tachypnea, with low pulse oximetry of 89% on room air. Although normally able to ambulate without assistance, this morning he was too weak to stand. He has history of stage IV prostate cancer with bony metastases. His last dose of chemotherapy was 4 days ago. His white blood cell count is 6.1 with 24% bands. Lactate level is 2.0. Blood cultures are pending. Treatment in the emergency department included administration of normal saline IV, acetaminophen 975 mg orally, ceftriaxone 1 g IV, and Zithromax 500 mg IV. He developed nausea during the administration of Zithromax, so Zofran 4 mg administered IV. I discussed his condition with Dr. Ness, who accepts him for further evaluation and treatment. I discussed CODE STATUS with the patient, and he is full code. - Sepsis Event Vital Signs: Vital Signs - 24 hr 10/02/17 10/02/17 10/02/17 06:02 06:18 06:30 Temperature 38.3 C H Heart Rate 132 H 127 H 130 H Respiratory 28 H 27 H 26 H Rate Blood Pressure 124/56 L 109/57 L 108/70 O2 Saturation 89 L 95 95 10/02/17 10/02/17 07:11 07:37 Temperature Heart Rate 118 H 111 H Respiratory 28 H 26 H Rate Blood Pressure 118/51 L 109/46 L O2 Saturation 95 95 Oxygen O2 Source Nasal cannula Oxygen Flow Rate 2 Departure - Departure Disposition: 66 [facility] DC/Xfer Clinical Impression: Prostate cancer metastatic to bone Pneumonia Qualifiers: Pneumonia type: due to unspecified organism Laterality: left Lung location: lower lobe of lung Qualified Code(s): J18.1 - Lobar pneumonia, unspecified organism Condition: Fair
[2017-10-02 06:29] LABS: BASOPHILS % (AUTO) 1.1 %; HGB - HEMOGLOBIN 10.2 g/dL (14.0-18.0); LYMPHOCYTES % (AUTO) 6.7 %; MEAN CORPUSCULAR HEMOGLOBIN 29.8 pg (27.0-31.0); MEAN CORPUSCULAR HGB CONC 33.8 g/dL (32.0-36.0); MEAN CORPUSCULAR VOLUME 88.4 fL (80.0-94.0); MEAN PLATELET VOLUME 7.7 fL (7.4-11.4); MONOCYTES % (AUTO) 2.1 %; NEUTROPHILS % (AUTO) 90.1 %; PLT - PLATELET COUNT 113 10^3/uL (130-450); RED BLOOD COUNT 3.41 10^6/uL (4.70-6.10); RED CELL DISTRIBUTION WIDTH 22.4 % (12.0-15.0); WHITE BLOOD COUNT 6.1 x10^3/uL (4.8-10.8)
[2017-10-02 06:37] LABS: ABNORMAL LYMPHS % (MANUAL) 0 %
[2017-10-02 06:37] LABS: CLARITY,URINE CLEAR (CLEAR)
[2017-10-02 06:38] LABS: INR 1.2 (0.8-1.2); PT - PROTHROMBIN TIME 13.8 secs (9.9-12.6)
[2017-10-02 06:42] LABS: BACTERIA,URINE None Seen /HPF (None Seen); CASTS, URINE 0-2 Hyaline Casts /LPF; MUCUS,URINE Few Strands; RBC,URINE 0-5 /HPF (0-5); SQUAMOUS EPITHELIAL CELL,UR RARE Squamous (<= Few)
[2017-10-02 06:46] LABS: ALBUMIN 2.6 g/dL (3.2-5.5); ALBUMIN/GLOBULIN RATIO 0.9 (1.0-2.2); BILIRUBIN,TOTAL 1.3 mg/dL (0.2-1.0); CALCIUM 7.7 mg/dL (8.5-10.3); CREATININE 0.7 mg/dL (0.6-1.2); TOTAL PROTEIN 5.6 g/dL (6.7-8.2)
--- NOTE | 2017-10-02 06:52 | XRAY Report ---
Procedure Date: 10/02/2017 Accession Number: [id number] / [id number] Procedure: XR - Chest 1 View X-Ray CPT Code: 69264 FULL RESULT: EXAM: CHEST RADIOGRAPHY EXAM DATE: 10/02/2017 06:23 AM. CLINICAL HISTORY: Weakness. COMPARISON: CHEST 1 VIEW 09/23/2017 10:09 AM. TECHNIQUE: 1 view. FINDINGS: Lungs/Pleura: Pulmonary vascular congestion. Atelectasis or infiltrate at the left base. Small left pleural effusion. No pneumothorax. Mediastinum: Within exam limitations, heart size is normal to upper normal. Aortic atherosclerosis is seen. Other: Right-sided [place] is unchanged. Extensive osseous metastatic disease. IMPRESSION: 1. Pulmonary vascular congestion. 2. Left basilar atelectasis or infiltrate and small left pleural effusion. 3. Otherwise similar compared with the prior exam. RADIA
[2017-10-02] MEDS ORDERED: cefTRIAXone 1 GM in SODIUM CHLORIDE 0.9% MINIBAG 100 ML IV STA (06:57)
[2017-10-02] MEDS ORDERED: AZITHROMYCIN INJ 500 MG in SODIUM CHLORIDE 0.9% 250 ML IV STA (06:57)
[2017-10-02 06:58] LABS: BAND NEUTROPHILS % (MANUAL) 24 %; LYMPHOCYTES # (MANUAL) 0.5 10^3/uL (1.5-3.5); LYMPHOCYTES % (MANUAL) 5 %; METAMYELOCYTES % (MANUAL) 2 %; MONOCYTES # (MANUAL) 0.1 10^3/uL (0.0-1.0); NEUTROPHILS # (MANUAL) 5.4 10^3/uL (1.5-6.6); NEUTROPHILS % (MANUAL) 65 %
[2017-10-02 06:59] LABS: DIFFERENTIAL COMMENT MANUAL DIFFERENTIAL; PLATELET ESTIMATE, MANUAL DECREASED (<130,000) (NORMAL); PLATELET MORPHOLOGY NORMAL APPEARANCE (NORMAL); RBC MORPHOLOGY (MULTIPLE) 1+ ANISOCYTOSIS (NORMAL)
[2017-10-02] MEDS ORDERED: ONDANSETRON 4 MG/2 ML VIAL IVP STA (07:27)
[2017-10-02] MEDS ORDERED: oxyCODONE 5 MG TABLET PO PRN (08:03)
[2017-10-02] MEDS ORDERED: ONDANSETRON 4 MG/2 ML VIAL IVP PRN (08:03)
[2017-10-02] MEDS ORDERED: IBUPROFEN 400 MG TABLET PO PRN (08:03)
[2017-10-02] MEDS ORDERED: ONDANSETRON ODT 4 MG TABLET TL PRN (08:03)
[2017-10-02] MEDS ORDERED: ALBUTEROL NEB 2.5 MG/3 ML INH PRN (08:06)
[2017-10-02 08:30] LABS: PHOSPHORUS 2.6 mg/dL (2.5-4.6)
[2017-10-02] MEDS ORDERED: levoFLOXacin 750 MG/150 ML 750 MG/150 ML BAG IV SCH (09:00)
[2017-10-02] MEDS: SODIUM CHLORIDE 0.9% 1,000 ML IV SCH ×3 (09:12→21:15)
[2017-10-02] MEDS: ENOXAPARIN 40 MG/0.4 ML SYRINGE SUBQ SCH (09:15)
[2017-10-02] MEDS: SODIUM CHLORIDE FLUSH 0.9% 10 ML SYRINGE IVP SCH ×2 (09:17→16:21)
[2017-10-02] MEDS: POLYETHYLENE GLYCOL 3350 17 GM PACKET PO SCH (09:17)
[2017-10-02] MEDS ORDERED: cefTRIAXone 1 GM in SODIUM CHLORIDE 0.9% MINIBAG 100 ML IV SCH (10:00)
[2017-10-02] MEDS: ACETAMINOPHEN 325 MG TABLET PO PRN ×2 (12:57→16:19)
[2017-10-02] MEDS ORDERED: VANCOMYCIN PER PHARMACY 10 GM in SODIUM CHLORIDE 0.9% 250 ML IV STA (13:02)
[2017-10-02] MEDS: CEFEPIME 2 GM in SODIUM CHLORIDE 0.9% MINIBAG 100 ML IV SCH ×2 (13:52→21:52)
[2017-10-02] MEDS ORDERED: METOPROLOL 5 MG/5 ML VIAL IVP STA (14:22)
--- NOTE | 2017-10-02 15:34 | Ultrasound Report ---
Procedure Date: 10/02/2017 Accession Number: [id number] / [id number] Procedure: US - Abdomen Complete CPT Code: FULL RESULT: EXAM: Abdomen Complete DATE: 10/02/2017 3:20 PM CLINICAL HISTORY: LFT's up and septic, hx of stones COMPARISON: Limited comparison is made to the CT abdomen pelvis 09/22/2017 TECHNIQUE: Real-time scanning was performed with static images obtained. FINDINGS: Liver: Normal in size and echotexture. cm. Main portal vein flow: Hepatopetal. Gallbladder: There is cholelithiasis without wall thickening, pericholecystic fluid, abnormal color Doppler signature of the gallbladder wall. Biliary System: Common bile duct measures 6 mm. No intrahepatic or extrahepatic ductal dilatation. Pancreas: Visualized portion is unremarkable. Kidneys: Right: 11.2 cm longitudinally. Normal. No contour-deforming mass, stones, or hydronephrosis. Left: 11 cm longitudinally. Normal. No contour deforming mass, stones or hydronephrosis. 2 renal cysts the largest of which measures up to 1.8 cm. Spleen: Measures up to 11 cm. The IVC evaluation is limited but visualized portions are unremarkable on grayscale ultrasound. The aorta is up to 2 cm in the upper abdomen. IMPRESSION: Cholelithiasis without evidence of cholecystitis. RADIA
[2017-10-02] MEDS: IPRATROPIUM/ALBUTEROL 3 ML NEB INH SCH ×2 (15:47→19:14)
[2017-10-02] MEDS ORDERED: VANCOMYCIN INJ 1.75 GM in SODIUM CHLORIDE 0.9% 500 ML IV ONE (16:00)
[2017-10-02] MEDS ORDERED: IPRATROPIUM/ALBUTEROL 3 ML NEB INH SCH (16:00)
[2017-10-02] MEDS ORDERED: DOCUSATE SODIUM 100 MG CAPSULE PO PRN (16:02)
[2017-10-02] MEDS ORDERED: HYDROcod/ACETAM 5/325 MG TABLET PO PRN (16:02)
[2017-10-02] MEDS ORDERED: FEXOFENADINE 60 MG TABLET PO PRN (16:02)
[2017-10-02] MEDS ORDERED: LORazepam 0.5 MG TABLET PO PRN (16:14)
[2017-10-02] MEDS: predniSONE 5 MG TABLET PO SCH (16:20)
[2017-10-02] MEDS: SACCHAROMYCES BOULARDII 250 MG CAPSULE PO SCH (16:20)
--- NOTE | 2017-10-02 17:29 | ADVANCE CARE PLANNING NOTE ---
Advance Care Planning - Date/Time Date: 10/02/17 Time: 15:00 - Purpose of encounter Text: Establish what his thought processes with regards to his severity of illness currently, and help he wants us to proceed in view of the fact of his metastatic prostate cancer - Parties in attendance Parties in attendance: Dr. Esteves, patient's , a son - Decisional capacity Decisional capacity of: Patient is intact. Some of his decision is impacted by who is crying at the bedside. - Subjective/Patient's story Subjective/Patient's story: He was in good health, and his only major illness was that of syncope with carotid stenosis back in 2016 and he had a carotid endarterectomy. He started having weight loss, fatigue, lack of appetite last fall. He was diagnosed with prostate cancer with PSA of greater than 1000. He initially did well. His states that sometimes the chemo would not come down but he would bounce back. It was a regular cycle and they knew what to anticipate in spite of his nausea, fatigue. He always had good days in between. His PSA started to rise again in spite of the treatment and he was changed to a new chemotherapy drug. Again the same cycle of being knocked down the back up again. About a week ago his leg started feeling weak and rubbery. Could not walk very far. Today he was so weak that he could not get out of the bed. And they brought him to the emergency room. He is found to have sepsis, source not quite known yet. He currently lives with his second . They have been together about 16 years. He does have 3 sons in his life and states that they are very important to him. His symptoms are from his first . He understands that he has 1-3 years to live with his cancer. That he will not be cured and the chemotherapy is to shrink tumor burden and buy him some time. His is tearful and states that it has not even been a year yet she does not want to discuss end-of-life issues. She wants to hear only positive statements. He has no specific goals with regards to what he wants to do with this time. He just likes his . She is his only. He wants to fight this to the better end. If his oncologist gives him chemotherapy on the day he dies that is okay with him. He really has not thought about it much more beyond that. - Objective/Medical story Objective/Medical Story: Moderately overweight short statured white male who has hypertension, carotid endarterectomy from 2016, cholelithiasis on CAT scan, renal cyst, left inguinal hernia, and asthma with allergies. Dianogsed with Stage 4 prostate cancer and is receiving taxotere and lupron. Zometa. his performance status has been less and less but the last week was worse. He needed more and more help to be pulled out his lift chair. today he just couldn' t get out of bedl bc so weak that she called an ambulance. Found to have severe sepsis in the ER with source being the LLL infiltrate or atelectasis. UA clear. ABD is not painful. - Goals of Care Goals of care determinations: He would like to stay alive as long as possible. He has not thought much about what he would like at the end of his life. Right now, he wants chemo to prolong his life as much at it can. But if he is comatose or without neurological function to let him go. - Plan Plan: If he needs intubation, tube feeds, surgery, he would like it done if it would prolong his life. - Code Status Code Status: Attempt Resuscitation - Time Spent on Advance Care Planning Time spent on advance care plannin minutes.
--- NOTE | 2017-10-02 19:28 | HISTORY & PHYSICAL EXAMINATION ---
DATE OF SERVICE: 10/02/2017 Physician: Perla Ness MD ADMISSION HISTORY AND PHYSICAL PRIMARY CARE PROVIDER: Mamadou Roca M.D. ADMITTING PROVIDER: Perla Ness M.D. CHIEF COMPLAINT: Weakness and sliding to the floor. HISTORY OF PRESENT ILLNESS: Patient is a 67-year-old white male who unfortunately has stage IV prostate cancer. He presented to his primary care provider with weight loss, fatigue, and that had been accompanied by lack of energy, rubbery legs for about 5 months. Evaluation showed him to have a PSA that was 1011 and 12/10/2016. Started on Lupron and Zytiga under the care of Dr. Mamadou Roca at [facility]. He had radiation implant seed , Lupron and Zytiga. His PSA initially responded and his says it went down to 40. Unfortunately, it has been rising again and Zytiga was discontinued and he was changed to Taxotere. He has reportedly received 4 doses of Taxotere. With each dose, he gets fatigued, nauseated, and then he gradually recovers. He says he has a feeling he has been having that of constipation. After this last time, he has not bounced back. He does get Neulasta injections the day after chemo. Neulasta usually makes his bones hurt and that is unchanged. His last Neulasta injection was 09/29/2017. He denies cough, congestion. Denies any problems with ear pain, runny nose, sore throat. He has no chest pain, pleuritic or otherwise. He denies any abdominal pain. He feels full and constipated, but denies any rectal pain, right upper quadrant pain. He is known to have cholelithiasis on CT in the past. He does have a rash around his buttock and lower spine. He said he has had that rash for decades and he has been told that it is from herpes. There has been no new joint pain. No headaches, no blurred vision. His Port-A-Cath is accessed only at the [facility]. He says he does not allow anybody else to access it. About a week ago, it started getting to the point that he could not get out of a chair because of weakness. As long as he had some help such as his pulling him up, he could get up and walk. This morning, his weakness was much worse. He was completely unable to stand. He has been complaining of lightheadedness, chills. He was seen in the emergency room 9 days ago for asthma exacerbation. Three weeks ago, he broke his right wrist after falling off a step stool. He was trying to put up a bird feeder. In the emergency room, he was seen by Dr. Montiel. Temperature was 38.3, heart rate was 132, respirations 28, blood pressure 124/56, and O2 saturation 89% on room air. He was in sinus tachycardia. White cell count was 6.1, hemoglobin 10.2. He did have bandemia. Liver enzymes were mildly elevated with a bilirubin of 1.3, AST 44, ALT 67, alkaline phosphatase 146. The chest x-ray shows some pulmonary vascular congestion, left basilar atelectasis or infiltrate , and a small left pleural effusion. Otherwise, similar compared to prior exam of 09/23/2017. Dr. Montiel feels that the left lower lobe infiltrate is a source of this gentleman's sepsis and is requesting inpatient admission. Treatment in the emergency room consisted of acetaminophen, azithromycin, Zofran , 1 liter of IV fluids, and ceftriaxone. PAST MEDICAL HISTORY 1. Hypertension. 2. Left carotid stenosis found in association with an admission for syncope in June 2015. He has had a carotid endarterectomy. 3. Cholelithiasis on CT, asymptomatic. 4. Renal cyst. 5. Left inguinal hernia. 6. Asthma with allergies. 7. Prostate cancer as above, stage IV. MEDICATIONS 1. Albuterol Ventolin inhaler. 2. Docusate sodium 100 mg p.o. b.i.d. 3. Fexofenadine 180 mg p.o. daily. 4. [place] 5/325 1-2 tablets every 4 hours as needed. 5. DuoNeb via nebulizer q.i.d. 6. Ativan 0.5 mg p.o. q.6h. 7. Metoprolol 25 mg p.o. b.i.d. 8. Zofran 4 mg q.6h. as needed for nausea. 9. Prednisone 5 mg p.o. b.i.d. 10. Zometa 4 mg IV every month. 11. Neulasta 6 mg subcutaneous every 21 days, usually accompanying his Taxotere. 12. Taxotere 110 mg IV every 21 days. 13. Bicalutamide 50 mg p.o. daily. SOCIAL HISTORY: He was born in [place], but grew up in [place] [facility]. Lives in [place] and has lived there for over 20 years. He lives with his girlfriend and now calls her his for the last 16 years. He has 4 children with the previous ex-. They are all boys and one of his sons accompanies him today. They all live in [place]. He smoked from the age of 20 to 26. He smoked half a pack a day and he quit when he developed asthma. He did smoke a couple of years in his 40s no more than half a pack, but has not smoked since approximately 1995. He drinks about 4 glasses of wine a night. Occasional marijuana. No other recreational substance abuse. FAMILY HISTORY: Mom had a stroke and coronary artery disease. Dad was healthy and in old age, but before his did have prostate cancer with brachytherapy. Brother had metastatic colon cancer. CODE STATUS: FULL CODE. Please refer to [facility] plan. REVIEW OF SYSTEMS CONSTITUTIONAL: He describes general weakness and failing with decreased appetite over the last few weeks. Some chills, some sweats. ENT: No headache, blurred vision, ear pain, mouth, or sore throat pain. PULMONARY: Negative as above in HPI. CARDIAC: Denies edema, orthopnea, chest pain, palpitations. No history of heart attack, valvular heart disease. GASTROINTESTINAL: Nausea, constipation, no bloody stools, no diarrhea. Denies any abdominal pain. GENITOURINARY: Occasional urinary incontinence, urinary retention and nocturia. Denies flank pain or hematuria. JOINTS: Occasionally, his knees have incredibly sharp, stabbing pain, especially if he has had Neulasta, but no effusions, no redness, no swelling or heat of any joints. SKIN: The herpes rash of his buttock. Otherwise, no change. ENDOCRINE: Denies polyuria, polydipsia, or polyphagia. Cold intolerances developing. PSYCHIATRIC: Normal adjustment with sadness and fear of this diagnosis, but denies suicidal ideation. CENTRAL NERVOUS SYSTEM: Other than when he passed out in 2016, no further episodes of syncope. No seizures. No headache. No focal deficits. No dysphasia. No dysarthria. PHYSICAL EXAMINATION VITAL SIGNS: On examination, temperature is 37.7, pulse is 125, blood pressure 116/49, respirations 24, 93% on 3 liters. He is a short-statured, stocky white male who looks his stated age, pale, slightly diaphoretic with a fever, protuberant belly. Slight respiratory distress with increased respiratory rate. HEENT: Good dentition, pupils reactive. Sclerae nonicteric. No facial asymmetry. Throat is normal. No erythema. Voice is slightly hoarse. NECK: Shotty adenopathy. No goiter or bruits. LUNGS: Clear in a barrel chest. I am really not hearing crackles, rhonchi, or wheezing. Slight increased respiratory rate, but no increased respiratory effort. He feels like he cannot take a full breath, but no chest pain. CARDIAC: Tachycardic, regular rate and rhythm. No murmurs. As I look at his Port-A-Cath site, there is no redness, no effusions, no heat. ABDOMEN: Protuberant, firm musculature, hypoactive bowel sounds, but nontender. No rebound or guarding. EXTREMITIES: Hot and diaphoretic to touch without clubbing, cyanosis, or edema. NEUROLOGIC: He is alert and oriented to person, place and time, following commands, generalized weakness where he is a limp noodle, but no focal deficits. No tremors. LABORATORY DATA: Sodium 129, potassium 3.6, BUN 20, creatinine 0.7, random glucose 135. Lactic acid started out at 2. Bilirubin is 1.3, AST 44, ALT 67, alkaline phosphatase 146, total protein 5.6, albumin 2.6. INR 1.2. White cell count 6.1, hemoglobin 10.2, hematocrit 30.2, platelets are 113. Urinalysis has a high specific gravity of 1.030 with proteinuria. He has rare squamous cells, no hyaline cast, 0-5 red cells, 0-3 white cells and no urine bacteria seen. Culture will not be done. Chest x-ray as above with left lower lobe atelectasis versus infiltrate or effusion. ASSESSMENT AND PLAN 1. Severe sepsis. At this time, source is not clearly delineated. He is being treated as pneumonia on the basis of the chest x-ray. However, he has new liver function study abnormality. Is the abnormal liver function study a function of his hypotension or infectious agent such as cholecystitis. The other possibility is a gentleman who has a Port-A-Cath and gets Taxotere. Could he have line sepsis. PLAN 1. Admit inpatient status. 2. Attestation: The patient will be admitted less than 96 hours. 3. Sepsis protocol, 6 hour, followup to 3-hour protocol from ER will be followed. Lactic acid will be ordered. Broad spectrum antibiotics in the form of cefepime and vancomycin to be given. Initially, he was given Rocephin and azithromycin, then Levaquin, but in reviewing the literature, it will be cefepime and vancomycin in a patient who is critically ill with suspected pulmonary source of sepsis. 4. Adjust antibiotics on the basis of blood cultures. 5. Check echocardiogram looking for endocarditis. 6. I have explained to the patient that although we are treating as a pulmonary source, we must look for other sources such as line infection. If his blood cultures come back positive for gram-positive cocci, his Port-A-Cath may need to be removed. 7. Patient is a FULL CODE. If he continues to have hypotension or organ failure, he may need to be transferred to ICU. He does want vasopressors given. He also wants to be intubated if necessary. 2. Abnormal liver function studies. Are the abnormal liver function studies a result of hypotension or could this be side effect of the Taxol? Those patients experience hand/foot syndrome, diarrhea, stomatitis, nausea, neutropenic fever, myalgias, and arthralgias. He just had a CT of the abdomen on 09/22/2017. Other than his tumor burden, there is no organ system involvement. CT is unavailable for us at this time so I will order abdominal ultrasound. While I do understand that Taxol should not be given to patients who have elevated liver function studies, it appears that based on liver function studies, it can become abnormal with Taxotere. I do not know what the dose of Taxotere was. Liver enzymes will be monitored. 3. Tachycardia. Sepsis related versus possible endocarditis. Again, echocardiogram will be done. 4. History of asthma. Currently no wheezing, but the patient subjectively feels like his chest is tight and is asking for nebulizers. Unable to do angiogram of the chest and no V/Q scan available because of lack of Nuclear Medicine. D-dimer will be positive in this gentleman. If continues to have significant chest tightness, check venous Dopplers of the legs. If symptoms continue in spite of negative venous Dopplers, consider transfer for inpatient visualization. 5. FULL CODE STATUS. I carefully asked the patient what he understood his prognosis to be. He states that he was given 1 to 3 years to live. I asked him if there is any point that he would consider drawing the line and that I am not to go beyond that. He states at this time he has not thought about it. He would like to be a FULL CODE. If he needs to be intubated, given chest compressions, cardioversion, he is willing to allow it. However, after resuscitation, if he is significantly brain damage, to let him go. 6. Deep venous thrombosis prophylaxis with Lovenox and LALITA hose. 7. Prostate cancer with metastatic disease. I have spoken to Dr. Roca at the request of the patient's . Case Discussed. Treatment plan reviewed. At this time, no changes recommended. cc: Mamadou Roca MD TD: 10/02/2017 17:01 MTDD
[2017-10-02] MEDS: METOPROLOL TARTRATE 25 MG TABLET PO SCH (20:46)
[2017-10-02] MEDS: ALBUTEROL NEB 2.5 MG/3 ML INH PRN (23:26)
[2017-10-03] MEDS: SODIUM CHLORIDE FLUSH 0.9% 10 ML SYRINGE IVP SCH ×3 (00:04→15:49)
[2017-10-03] MEDS: SODIUM CHLORIDE 0.9% 1,000 ML IV SCH ×2 (01:43→09:57)
[2017-10-03] MEDS: IPRATROPIUM/ALBUTEROL 3 ML NEB INH SCH ×3 (01:56→13:00)
[2017-10-03] MEDS: ALBUTEROL NEB 2.5 MG/3 ML INH PRN (03:44)
[2017-10-03] MEDS: CEFEPIME 2 GM in SODIUM CHLORIDE 0.9% MINIBAG 100 ML IV SCH ×2 (05:37→13:42)
[2017-10-03 06:02] LABS: CALCIUM 7.9 mg/dL (8.5-10.3); CREATININE 0.6 mg/dL (0.6-1.2)
[2017-10-03] MEDS: VANCOMYCIN INJ 1 GM in SODIUM CHLORIDE 0.9% 250 ML IV SCH ×2 (06:27→18:00)
[2017-10-03 06:55] LABS: BASOPHILS % (AUTO) 0.8 %; EOSINOPHILS % (AUTO) 1.1 %; HGB - HEMOGLOBIN 9.6 g/dL (14.0-18.0); LYMPHOCYTES % (AUTO) 10.4 %; MEAN CORPUSCULAR HEMOGLOBIN 29.9 pg (27.0-31.0); MEAN CORPUSCULAR HGB CONC 32.9 g/dL (32.0-36.0); MEAN CORPUSCULAR VOLUME 90.7 fL (80.0-94.0); MEAN PLATELET VOLUME 8.4 fL (7.4-11.4); MONOCYTES % (AUTO) 2.5 %; NEUTROPHILS % (AUTO) 85.2 %; PLT - PLATELET COUNT 115 10^3/uL (130-450); RED BLOOD COUNT 3.21 10^6/uL (4.70-6.10); RED CELL DISTRIBUTION WIDTH 22.1 % (12.0-15.0); WHITE BLOOD COUNT 3.1 x10^3/uL (4.8-10.8)
[2017-10-03 07:02] LABS: ABNORMAL LYMPHS % (MANUAL) 0 %
[2017-10-03 07:08] LABS: BAND NEUTROPHILS % (MANUAL) 10 %; LYMPHOCYTES # (MANUAL) 0.3 10^3/uL (1.5-3.5); LYMPHOCYTES % (MANUAL) 7 %; METAMYELOCYTES % (MANUAL) 6 %; MONOCYTES # (MANUAL) 0.1 10^3/uL (0.0-1.0); NEUTROPHILS # (MANUAL) 2.5 10^3/uL (1.5-6.6); NEUTROPHILS % (MANUAL) 70 %
[2017-10-03 07:10] LABS: RBC MORPHOLOGY (MULTIPLE) 2+ ANISOCYTOSIS (NORMAL)
[2017-10-03 07:12] LABS: DIFFERENTIAL COMMENT MANUAL DIFFERENTIAL; PLATELET ESTIMATE, MANUAL DECREASED (<130,000) (NORMAL); PLATELET MORPHOLOGY NORMAL APPEARANCE (NORMAL)
[2017-10-03] MEDS: METOPROLOL TARTRATE 25 MG TABLET PO SCH (08:34)
[2017-10-03] MEDS: predniSONE 5 MG TABLET PO SCH ×2 (08:34→17:25)
[2017-10-03] MEDS: SACCHAROMYCES BOULARDII 250 MG CAPSULE PO SCH ×2 (08:35→17:25)
[2017-10-03] MEDS: ACETAMINOPHEN 325 MG TABLET PO PRN (08:37)
[2017-10-03] MEDS: POLYETHYLENE GLYCOL 3350 17 GM PACKET PO SCH (08:42)
[2017-10-03] MEDS: ENOXAPARIN 40 MG/0.4 ML SYRINGE SUBQ SCH (08:44)
[2017-10-03] MEDS: LEVALBUTEROL 1.25 MG/3 ML NEB INH PRN ×2 (10:22→15:15)
[2017-10-03] MEDS ORDERED: cefTRIAXone 2 GM in SODIUM CHLORIDE 0.9% MINIBAG 100 ML IV SCH (11:00)
[2017-10-03] MEDS ORDERED: PROCHLORPERAZINE 10 MG/2 ML VIAL IVP PRN (12:54)
[2017-10-03] MEDS ORDERED: MORPHINE 2 MG/ML SYRINGE IVP PRN (15:14)
[2017-10-03] MEDS ORDERED: CALCIUM CARBONATE CHEW 500 MG TABLET PO SCH (18:00)
[2017-10-03] MEDS: SODIUM CHLORIDE FLUSH 0.9% 10 ML SYRINGE IVP PRN ×2 (18:01→18:07)
--- NOTE | 2017-10-03 18:18 | XRAY Report ---
Procedure Date: 10/03/2017 Accession Number: [id number] / [id number] Procedure: XR - Chest 2 View X-Ray CPT Code: 48125 FULL RESULT: EXAM: CHEST RADIOGRAPHY EXAM DATE: 10/03/2017 05:30 PM. CLINICAL HISTORY: Worsening resp status. COMPARISON: CHEST 1 VIEW 10/02/2017 6:23 AM. TECHNIQUE: 2 views. FINDINGS: Lungs/Pleura: There is bilateral diffuse interstitial and alveolar airspace disease. There is based disease is increased since previous. There is no pneumothorax. Mediastinum: Cardiac silhouette appears unchanged. Right-sided Port-A-Cath tip is not well seen. Other: There is heterogeneous sclerosis of the bones. IMPRESSION: 1. Increase in diffuse interstitial and alveolar airspace disease consistent with pulmonary edema, ARDS or aspiration. RADIA
--- NOTE | 2017-10-03 18:29 | Discharge Plan ---
Discharge Plan Disposition: 02 Transfer Acute Care Hosp Condition: Fair Diet: Regular Activity Restrictions: Activity as Tolerated Shower Restrictions: No Driving Restrictions: No Weight Bearing: Partial Weight No Smoking: If you smoke, Please STOP! Call for help. Follow-up with: Mamadou Roca MD [Primary Care Provider] -
--- NOTE | 2017-10-03 18:32 | DISCHARGE SUMMARY ---
Discharge Summary Admit Date: 10/02/17 Discharge Date: 10/03/17 Discharging Provider: Kiana Lai DO Primary Care Provider: Mamadou Roca Code Status: Attempt Resuscitation (Mamadou Roca) Condition at Discharge: Fair Discharge Disposition: 02 Transfer Acute Care Hosp Discharge Facility Name: [facility] - DIAGNOSES Admission Diagnoses: 1. Severe sepsis 2.Abnormal liver function studies 3. Tachycardia 4. History of asthma 5. Prostate cancer with metastatic disease. Discharge Diagnoses with Status of Each Condition: 1. Severe sepsis- The patient's lactic acid level went from 2.3 on admission down to 1.1 about 12 hours later. He is not showing any signs of any sepsis at this time. The patient is however showing respiratory distress and has needed an increase in his supplemental oxygen. After discussing the case at length with the patient, his , and Dr. Ness he will be transferred to [facility] under the care of Dr. Navdeep Ramirez for further care at this time. 2. Abnormal liver function studies- The patient has a history of metastatic prostate cancer and is currently receiving Taxol chemotherapy. Imaging studies did not show any significant abnormality. 3. Tachycardia- The patient is tachycardic with a heart rate of 116. This is likely related to his respiratory distress. We will continue to monitor. 4. History of asthma- Due to nuclear medicine being down we have not been able to do an angiogram of the chest and no VQ scan is available. Recommend rule out pulmonary embolus at [facility]. 5. Prostate cancer with metastatic disease. The patient is currently being treated for his prostate cancer with Dr. Roca. Dr. Roca is aware of the situation, and discussed his case with Dr Ness. - HPI History of Present Illness: From Dr Ness's H&P: The patient is a 59-year-old white male who unfortunately has stage IV prostate cancer. He presented to his primary care provider with weight loss, fatigue, lack of energy, and rubbery legs for about 5 months. Evaluation showed him to have a PSA that was 1011 and the patient was started on Lupron and Zytiga under the care of Dr. Mamadou Roca at [facility]. He had radiation implant seeds, Lupron, and Zytiga treatment. His PSA initially responded and his says it went down to 40, unfortunately has been rising again and the Zytiga was discontinued and he was changed to Taxotere. He has reportedly received 4 doses of Taxotere and with each dose he gets fatigued, nauseated and then he gradually recovers. He said he has a feeling of constipation. He has not been suspect after his last chemotherapy regimen and he does get Neulasta injections the day after chemotherapy. The Neulasta makes his bones hurt and his last injection was on September 29, 2017. He denies cough or congestion, about a week ago he became so weak that he could not get out of a chair because of weakness. He has been able to ambulate with assistance but today his weakness which much much worse and he was unable to stand. He has been complaining of lightheadedness and chills in the emergency room the patient was found to have a left lower lobe infiltrate which is considered to be the source of the patient 's sepsis although this was somewhat equivocal more on CT scan. Patient was admitted to a medical surgical bed and unfortunately has been declining since that time with worsening respiratory function and increasing need for supplemental oxygen. He is currently on at 8 L/m Via [employer]. After discussing the case at length with the patient, his , and Dr. Naqvi we decided to transfer the patient to [facility] where he was accepted by Dr. Navdeep Ramirez. - HOSPITAL COURSE Hospital Course: The patient is a 59-year-old white male who unfortunately has stage IV prostate cancer. He presented to his primary care provider with weight loss, fatigue, lack of energy, and rubbery legs for about 5 months. Evaluation showed him to have a PSA that was 1011 and the patient was started on Lupron and Zytiga under the care of Dr. Mamadou Roca at [facility]. He had radiation implant seeds, Lupron, and Zytiga treatment. His PSA initially responded and his says it went down to 40, unfortunately has been rising again and the Zytiga was discontinued and he was changed to Taxotere. He has reportedly received 4 doses of Taxotere and with each dose he gets fatigued, nauseated and then he gradually recovers. He said he has a feeling of constipation. He has not been suspect after his last chemotherapy regimen and he does get Neulasta injections the day after chemotherapy. The Neulasta makes his bones hurt and his last injection was on September 29, 2017. He denies cough or congestion, about a week ago he became so weak that he could not get out of a chair because of weakness. He has been able to ambulate with assistance but today his weakness which much much worse and he was unable to stand. He has been complaining of lightheadedness and chills in the emergency room the patient was found to have a left lower lobe infiltrate which is considered to be the source of the patient 's sepsis although this was somewhat equivocal more on CT scan. Patient was admitted to a medical surgical bed and unfortunately has been declining since that time with worsening respiratory function and increasing need for supplemental oxygen. He is currently on at 8 L/m Via [employer]. After discussing the case at length with the patient, his , and Dr. Naqvi we decided to transfer the patient to [facility] where he was accepted by Dr. Navdeep Ramirez. - ALLERGIES Allergies/Adverse Reactions: Allergies Allergy/AdvReac Type Severity Reaction Status Date / Time Penicillins Allergy Unknown Unknown Verified 10/02/17 06:05 codeine Allergy Unknown Verified 10/02/17 06:05 chlorehexidine Allergy Rash Uncoded 10/02/17 06:05 - MEDICATIONS Home Medications: Ambulatory Orders Medication Instructions Recorded Confirmed Ipratropium/Albuterol [Combivent 1 puffs INH QID 11/21/16 10/02/17 Respimat] Metoprolol Tartrate 25 mg PO BID 11/21/16 10/02/17 Bicalutamide 50 mg PO DAILY 09/14/17 10/02/17 Fexofenadine HCl 180 mg PO DAILY PRN 09/14/17 10/02/17 Albuterol Sulf [Ventolin Hfa 1 - 2 puffs INH Q4HR PRN #1 inhaler 09/23/17 Inhaler] DOCEtaxel [Docetaxel] 110 mg IV Q21D 10/02/17 10/02/17 Docusate Sodium 100 mg PO BID PRN 10/02/17 10/02/17 HYDROcod/ACETAM 5/325 [[place] 5/325] 1 - 2 ea PO Q4H PRN 10/02/17 10/02/17 LORazepam [Ativan] 0.5 mg PO Q6H 10/02/17 10/02/17 Leuprolide [Lupron] 7.5 mg IM .MONTHLY 10/02/17 10/02/17 Ondansetron Odt [Zofran Odt] 4 mg TL Q6H PRN 10/02/17 10/02/17 Pegfilgrastim [Neulasta] 6 mg SUBQ Q21D 10/02/17 10/02/17 Zoledronic Acid 4 mg/100 ml 4 mg IV Q42D 10/02/17 10/02/17 [Zometa 4 mg/100 ml] predniSONE [Deltasone] 5 mg PO BIDWM 10/02/17 10/02/17 - PHYSICAL EXAM AT DISCHARGE General Appearance: positive: No acute distress, Lethargic Eyes Bilateral: positive: Normal inspection, PERRL, EOMI, No lid inflammation, Conjunctivae nml, No scleral icterus ENT: positive: ENT inspection nml, Pharynx nml, No signs of dehydration Neck: positive: Nml inspection, Thyroid nml, No JVD, Trachea midline. negative : Thyromegaly Respiratory: positive: Chest non-tender, No respiratory distress, Breath sounds nml. negative: Wheezes, Rales, Rhonchi Cardiovascular: positive: Regular rate & rhythm, No murmur, No gallop Peripheral Pulses: positive: 1+ Abdomen: positive: Non-tender, No organomegaly, Nml bowel sounds, No distention. negative: Guarding, Rebound Back: positive: Nml inspection. negative: CVA tenderness (R), CVA tenderness (L ) Skin: positive: Color nml, No rash, Warm, Dry. negative: Cyanosis Extremities: positive: Non-tender, Full ROM, Nml appearance, No pedal edema Neurologic/Psychiatric: positive: Oriented x3, CN's nml (2-12), Motor nml, Sensation nml, Depressed mood/affect - LABS Result Diagrams: 10/03/17 05:20 10/03/17 05:20 - DIAGNOSTIC IMAGING Diagnostic Imaging Results Comments: EXAM: CHEST RADIOGRAPHY EXAM DATE: 10/03/2017 05:30 PM. CLINICAL HISTORY: Worsening resp status. COMPARISON: CHEST 1 VIEW 10/02/2017 6:23 AM. TECHNIQUE: 2 views. FINDINGS: Lungs/Pleura: There is bilateral diffuse interstitial and alveolar airspace disease. There is based disease is increased since previous. There is no pneumothorax. Mediastinum: Cardiac silhouette appears unchanged. Right-sided Port-A-Cath tip is not well seen. Other: There is heterogeneous sclerosis of the bones. IMPRESSION: 1. Increase in diffuse interstitial and alveolar airspace disease consistent with pulmonary edema, ARDS or aspiration. EXAM: Abdomen Complete DATE: 10/02/2017 3:20 PM CLINICAL HISTORY: LFT's up and septic, hx of stones COMPARISON: Limited comparison is made to the CT abdomen pelvis 09/22/2017 TECHNIQUE: Real-time scanning was performed with static images obtained. FINDINGS: Liver: Normal in size and echotexture. cm. Main portal vein flow: Hepatopetal. Gallbladder: There is cholelithiasis without wall thickening, pericholecystic fluid, abnormal color Doppler signature of the gallbladder wall. Biliary System: Common bile duct measures 6 mm. No intrahepatic or extrahepatic ductal dilatation. Pancreas: Visualized portion is unremarkable. Kidneys: Right: 11.2 cm longitudinally. Normal. No contour-deforming mass, stones, or hydronephrosis. Left: 11 cm longitudinally. Normal. No contour deforming mass, stones or hydronephrosis. 2 renal cysts the largest of which measures up to 1.8 cm. Spleen: Measures up to 11 cm. The IVC evaluation is limited but visualized portions are unremarkable on grayscale ultrasound. The aorta is up to 2 cm in the upper abdomen. EXAM: CHEST RADIOGRAPHY EXAM DATE: 10/02/2017 06:23 AM. CLINICAL HISTORY: Weakness. COMPARISON: CHEST 1 VIEW 09/23/2017 10:09 AM. TECHNIQUE: 1 view. FINDINGS: Lungs/Pleura: Pulmonary vascular congestion. Atelectasis or infiltrate at the left base. Small left pleural effusion. No pneumothorax. Mediastinum: Within exam limitations, heart size is normal to upper normal. Aortic atherosclerosis is seen. Other: Right-sided PowerPort is unchanged. Extensive osseous metastatic disease. IMPRESSION: 1. Pulmonary vascular congestion. 2. Left basilar atelectasis or infiltrate and small left pleural effusion. 3. Otherwise similar compared with the prior exam. - FOLLOW UP Follow Up: Follow-up with Dr. Roca and your PCP in the next week
[2017-10-03 19:29] VITALS: BP 130/59
== END 2017-10-03 19:55 | disposition short-term general hospital (02) | DRG 871 ==
LOC: EDUNIT# → SUPCPDRO 05:51 → ED 05:51 → MS2 08:03
PROVIDERS: ADMIT Specialist; ATTEND Hospitalist
DX: J18.1 Lobar pneumonia, unspecified organism (principal); A41.9 Sepsis, unspecified organism; R11.0 Nausea; T36.3X5A Adverse effect of macrolides, initial encounter; Y92.238 Other place in hospital as the place of occurrence of the external cause; J18.9 Pneumonia, unspecified organism; C79.51 Secondary malignant neoplasm of bone; C79.9 Secondary malignant neoplasm of unspecified site; R65.20 Severe sepsis without septic shock; J45.909 Unspecified asthma, uncomplicated; I95.9 Hypotension, unspecified; C61 Malignant neoplasm of prostate; R97.21 Rising PSA following treatment for malignant neoplasm of prostate; I10 Essential (primary) hypertension; K80.20 Calculus of gallbladder without cholecystitis without obstruction; Z95.828 Presence of other vascular implants and grafts; Z86.79 Personal history of other diseases of the circulatory system; Z79.52 Long term (current) use of systemic steroids; Z87.891 Personal history of nicotine dependence; Z79.899 Other long term (current) drug therapy; Z79.818 Long term (current) use of other agents affecting estrogen receptors and estrogen levels
CPT/HCPCS: 36415; 71045; 71046; 76700; 80048; 80053; 81001; 81003; 83605; 83690; 83735; 84100; 85025; 85610; 85730; 87040; 87086; 93005; 94640; 94664; 96361; 96365; 96366; 96368; 99284; 99285